=== PATIENT | male | born 1970 | race Caucasian/White ===

== ENCOUNTER 2016-11-26 07:28 | Day surgery (SDC) | payer OTHER ==
[2016-11-26] MEDS ORDERED: LIDOCAINE 2% MDV (20MG/ML) 20ML VIAL IV ONE (13:54)
[2016-11-26] MEDS ORDERED: PROPOFOL 10 MG/ML VIAL IV ONE (13:54)
--- NOTE | 2016-11-29 09:00 | Operative Note ---
DATE OF SURGERY: 11/26/2016 SURGEON: Maribel Mora MD OPERATION: COLONOSCOPY. INDICATIONS: This is a 46-year-old male with average risk for colorectal cancer who presented for screening colonoscopy. POSTOPERATIVE DIAGNOSES: 1. A 3 mm rectal polyp that was removed by cold biopsy forceps. 2. Otherwise normal colon. ANESTHESIA: Per the department of anesthesia, the pulse oximetry was monitored throughout the duration of the procedure to maintain O2 saturation of 90% or greater. Supplemental oxygen was administered via nasal cannula. Cardiac and vital signs were monitored throughout the duration of the procedure, and they were stable. Description of the procedure of colonoscopy and risks and benefits of the procedure including the risk of bleeding and perforation, among others, were explained to the patient who voiced understanding and consented to have the procedure done. Physical exam was performed, and the patient was found stable for sedation. PROCEDURE: The patient was then placed in the left lateral position, and sedation was initiated. Digital rectal exam was performed and showed some external hemorrhoids with no palpable rectal masses. The Olympus PCF-180AL colonoscope was then inserted into the rectum under direct visualization and advanced to the cecum without difficulty. The ileocecal valve and appendiceal orifice were identified and photographed. The colonic mucosa was carefully examined upon introduction of the colonoscope. There were no lesions noted. The colonoscope was then withdrawn while carefully examining the colonic mucosal surfaces. No lesions were noted. In the rectum, a 3 mm sessile polyp was noted and was removed by cold biopsy forceps. Upon retroflexion, there were no other lesions. The colonoscope was then withdrawn, and the procedures were terminated. The patient tolerated the procedure well without any immediate complications. He remained with stable vital signs and was transferred to the recovery room. RECOMMENDATIONS: 1. The patient should be on a high-fiber diet. 2. He is to have a repeat colonoscopy for surveillance in about 5 or 10 years depending on the histology of the polyps. Thank you for allowing me to participate in the care of your patient. Maribel Mora MD CC: Jazmin FLANNERY
== END 2016-11-26 09:21 | disposition home or self-care (01) ==
LOC: HOP 07:28
PROVIDERS: ATTEND Internal Medicine Gastroenterology
DX: Z12.11 Encounter for screening for malignant neoplasm of colon (principal); K62.1 Rectal polyp

== ENCOUNTER 2017-06-18 14:32 | Emergency (ER) | payer OTHER ==
[2017-06-18] MEDS ORDERED: Diph,Pert(Acell),Tet Vac 0.5 ML SYR IM ONE (14:57)
[2017-06-18] MEDS ORDERED: BUPIVACAINE HCL IM ONE (14:59)
[2017-06-18] MEDS ORDERED: CEPHALEXIN 500 MG CAPSULE PO STA (15:38)
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
--- NOTE | 2017-06-18 21:43 | RADIOLOGY REPORT ---
EXAM: FINGER(S), LEFT HISTORY: CRUSHING INJURY LEFT FOURTH DIGIT. COMPARISON: None. ENCOUNTER: Initial. TECHNIQUE: Three-view left fourth finger. FINDINGS: Acute nondisplaced intraarticular fracture involving the distal portion of the left fourth middle phalanx. Suspect mild comminution. IMPRESSION: ACUTE NONDISPLACED INTRAARTICULAR FRACTURE AT THE DISTAL MARGIN OF THE LEFT FOURTH MIDDLE PHALANX, WHICH MAY BE MILDLY COMMINUTED. JOB NUMBER: [id number] MTDD
== END 2017-06-18 16:07 | disposition home or self-care (01) ==
LOC: ER 14:32
DX: S62.655A Nondisplaced fracture of middle phalanx of left ring finger, initial encounter for closed fracture (principal); S61.315A Laceration without foreign body of left ring finger with damage to nail, initial encounter; W23.0XXA Caught, crushed, jammed, or pinched between moving objects, initial encounter
CPT/HCPCS: 12002; 73140; 90715; 96372; 99283; 99284